=== PATIENT | female | born 1940 | race Caucasian/White ===

== ENCOUNTER → 2016-05-06 | Outpatient (CLI) | payer MEDICARE ==
--- NOTE | 2016-05-06 09:59 | REPMRS ---
Patient History The patient states she had a clinical breast exam in 08/27 Patient is postmenopausal. Family history of prostate cancer in paternal uncle at age 50 or over and prostate cancer in maternal uncle at age 50 or over. Digital Woman Screen Mammo: May 06, 2016 - Exam #: [id number] Bilateral CC and MLO view(s) were taken. Technologist: Mana Ferrara, Technologist Prior study comparison: December 22, 2014, digital woman screen mammo performed at [facility] to Woman. May 05, 2013, digital woman screen mammo performed at [facility] to [facility]. March 11, 2012, digital woman screen mammo performed at [facility] to [facility]. FINDINGS: There are scattered fibroglandular densities. There has been no change in the appearance of the mammogram from the prior studies. There is a mild amount of scattered fibroglandular density which is fairly symmetric. There is no interval development of dominant mass, architectural distortion, or clustered microcalcification suggestive of malignancy. ASSESSMENT: BI-RADS/ACR category 1 mammogram. Negative. Recommendation Routine screening mammogram in 1 year (for women over age 40). This mammogram was interpreted with the aid of an FDA-approved computer-aided dectection system. Electronically Signed By: Parth Garza MD 05/06/16 0959
--- NOTE | 2016-05-06 15:03 | DEXA ---
AP SPINE L1 - L4 1.166 -0.1 2.4 LT FEMUR TOTAL 0.737 -2.2 0.2 RT FEMUR TOTAL 0.654 -2.8 -0.4 TOTAL BODY TOTAL OTHER DUAL FEMUR FRAX* ASSESSMENT Risk factors: History of fracture (adult). Secondary osteoporosis ( premature menopause). 10 year probability of fracture Major osteoporotic fracture 23.5 % Hip fracture 8.1 % COMMENTS: Normal bone densitometry of the spine. 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 Lumbar scoliosis and degenerative change The density of the spine has increased 7.9% since the initial exam on 1999. The spine density has decreased 0.7% since the most recent exam on 04/02/2013. The density of the left hip has decreased 7.1% since the initial exam on 1999. The density of the left hip has decreased 3.9% since the most recent exam on . The density of the right hip has decreased 11.9% since the initial exam on 03/20. The density of the right hip has decreased 7.5% since the most recent exam on . FOLLOW-UP: Recommendation for the next bone density exam: 2 years. LIZ
== END | disposition home or self-care (01) ==
LOC: M WHC 08:54
PROVIDERS: ATTEND Internal Medicine
DX: Z12.31 Encounter for screening mammogram for malignant neoplasm of breast (principal); M85.80 Other specified disorders of bone density and structure, unspecified site; M81.0 Age-related osteoporosis without current pathological fracture; Z78.0 Asymptomatic menopausal state
CPT/HCPCS: 77080; G0202

== ENCOUNTER → 2016-06-14 | Outpatient (REF) | payer MEDICARE ==
[2016-06-14 11:39] LABS: MEAN CORPUSCULAR HGB CONC 33.4 g/dl (32.0-36.5); MEAN CORPUSCULAR VOLUME 86.9 fl (80.0-96.0); RED CELL DISTRIBUTION WIDTH 13.1 % (11.5-14.5); WHITE BLOOD COUNT 3.4 K/mm3 (4.0-10.0)
[2016-06-14 12:17] LABS: ALBUMIN 3.7 GM/DL (3.2-5.2); ALBUMIN/GLOBULIN RATIO 0.69 (1.00-1.93); ALKALINE PHOSPHATASE 137 U/L (45-117); ALT/SGPT 26 U/L (12-78); ANION GAP 7 MEQ/L (8-16); AST/SGOT 19 U/L (15-37); BILIRUBIN,TOTAL 0.3 MG/DL (0.2-1.0); BLOOD UREA NITROGEN 14 MG/DL (7-18); CALCIUM LEVEL 8.8 MG/DL (8.8-10.2); CARBON DIOXIDE LEVEL 30 MEQ/L (21-32); CHLORIDE LEVEL 104 MEQ/L (98-107); CHOLESTEROL LEVEL 202 MG/DL (<200); CREATININE FOR GFR 0.82 MG/DL (0.55-1.02); GLOMERULAR FILTRATION RATE > 60.0 (>39); GLUCOSE, FASTING 88 MG/DL (83-110); SODIUM LEVEL 141 MEQ/L (136-145); TOTAL PROTEIN 9.1 GM/DL (6.4-8.2); TRIGLYCERIDES LEVEL 134 MG/DL (<150)
[2016-06-17 12:34] LABS: ALBUMIN 4.05 GM/DL (3.29-5.55); ALBUMIN % 44.5 % (55.8-66.1); GAMMA GLOBULIN % 33.7 % (11.1-18.8)
== END ==
LOC: M SFHCPLAZ 07:53
PROVIDERS: ATTEND Internal Medicine
DX: D89.0 Polyclonal hypergammaglobulinemia (principal); I10 Essential (primary) hypertension; E78.00 Pure hypercholesterolemia, unspecified

== ENCOUNTER → 2016-12-18 | Outpatient (REF) | payer MEDICARE ==
[2016-12-18 12:37] LABS: ALBUMIN 3.6 GM/DL (3.2-5.2); ALBUMIN/GLOBULIN RATIO 0.64 (1.00-1.93); ALKALINE PHOSPHATASE 118 U/L (45-117); ALT/SGPT 29 U/L (12-78); ANION GAP 6 MEQ/L (8-16); AST/SGOT 21 U/L (15-37); BILIRUBIN,TOTAL 0.4 MG/DL (0.2-1.0); BLOOD UREA NITROGEN 15 MG/DL (7-18); CALCIUM LEVEL 8.9 MG/DL (8.8-10.2); CARBON DIOXIDE LEVEL 31 MEQ/L (21-32); CHLORIDE LEVEL 104 MEQ/L (98-107); GLOMERULAR FILTRATION RATE > 60.0 (>39); GLUCOSE, FASTING 80 MG/DL (83-110); POTASSIUM SERUM 3.7 MEQ/L (3.5-5.1); SODIUM LEVEL 141 MEQ/L (136-145); TOTAL PROTEIN 9.2 GM/DL (6.4-8.2)
[2016-12-18 12:43] LABS: MEAN CORPUSCULAR HEMOGLOBIN 30.4 pg (27.0-33.0); MEAN CORPUSCULAR HGB CONC 34.7 g/dl (32.0-36.5); MEAN CORPUSCULAR VOLUME 87.6 fl (80.0-96.0); RED CELL DISTRIBUTION WIDTH 13.5 % (11.5-14.5); WHITE BLOOD COUNT 2.8 K/mm3 (4.0-10.0)
[2016-12-19 14:26] LABS: ALBUMIN % 44.6 % (55.8-66.1); GAMMA GLOBULIN % 32.6 % (11.1-18.8)
== END ==
LOC: M SFHCPLAZ 09:52
PROVIDERS: ATTEND Internal Medicine
DX: D89.0 Polyclonal hypergammaglobulinemia (principal)

== ENCOUNTER → 2017-06-17 | Outpatient (REF) | payer MEDICARE ==
[2017-06-17 11:10] LABS: HEMATOCRIT 37.2 % (36.0-47.0); HEMOGLOBIN 12.2 g/dl (12.0-16.0); MEAN CORPUSCULAR HEMOGLOBIN 28.8 pg (27.0-33.0); MEAN CORPUSCULAR HGB CONC 32.8 g/dl (32.0-36.5); MEAN CORPUSCULAR VOLUME 87.9 fl (80.0-96.0); PLATELET COUNT, AUTOMATED 176 10^3/uL (150-450); RED BLOOD COUNT 4.23 10^6/uL (4.00-5.40); RED CELL DISTRIBUTION WIDTH 12.7 % (11.5-14.5); WHITE BLOOD COUNT 4.5 10^3/uL (4.0-10.0)
[2017-06-17 11:22] LABS: ALBUMIN 3.6 GM/DL (3.2-5.2); ALBUMIN/GLOBULIN RATIO 0.69 (1.00-1.93); ALKALINE PHOSPHATASE 111 U/L (45-117); ALT/SGPT 27 U/L (12-78); ANION GAP 7 MEQ/L (8-16); AST/SGOT 20 U/L (7-37); BILIRUBIN,TOTAL 0.4 MG/DL (0.2-1.0); BLOOD UREA NITROGEN 19 MG/DL (7-18); CALCIUM LEVEL 8.6 MG/DL (8.8-10.2); CARBON DIOXIDE LEVEL 29 MEQ/L (21-32); CHLORIDE LEVEL 106 MEQ/L (98-107); CHOLESTEROL LEVEL 209 MG/DL (<200); CHOLESTEROL RISK RATIO 3.666 (<5); CREATININE FOR GFR 0.76 MG/DL (0.55-1.30); GLOMERULAR FILTRATION RATE > 60.0 (>39); GLUCOSE, FASTING 81 MG/DL (70-100); HDL CHOLESTEROL 57 MG/DL (>40); LDL CHOLESTEROL 132.2 MG/DL (<100); NON-HDL-C 152 MG/DL; SODIUM LEVEL 142 MEQ/L (136-145); TOTAL PROTEIN 8.8 GM/DL (6.4-8.2); TRIGLYCERIDES LEVEL 99 MG/DL (<150)
[2017-06-17 13:35] LABS: ALBUMIN 4.05 GM/DL (3.29-5.55); ALPHA-1-GLOBULINS 0.33 GM/DL (0.17-0.41)
[2017-06-17 13:36] LABS: ALPHA-1-GLOBULIN % 3.8 % (2.9-4.9); ALPHA-2-GLOBULINS 0.78 GM/DL (0.42-0.99); ALPHA-2-GLOBULINS % 8.9 % (7.1-11.8); BETA-1-GLOBULINS % 5.7 % (4.7-7.2); BETA-2-GLOBULINS 0.37 GM/DL (0.19-0.55); BETA-2-GLOBULINS % 4.2 % (3.2-6.5); GAMMA GLOBULIN % 31.4 % (11.1-18.8); GAMMA GLOBULINS 2.76 GM/DL (0.65-1.58)
[2017-06-19 08:11] LABS: BETA 2 MICROGLOBULIN 2.4 mg/L (0.6-2.4)
== END ==
LOC: M SFHCPLAZ 08:11
DX: D89.0 Polyclonal hypergammaglobulinemia (principal); E78.00 Pure hypercholesterolemia, unspecified
CPT/HCPCS: 84165

== ENCOUNTER → 2017-12-31 | Outpatient (CLI) | payer MEDICARE | LOC: M WHC 09:28 | DX: Z12.31 Encounter for screening mammogram for malignant neoplasm of breast (principal) | CPT/HCPCS: 77067 ==

== ENCOUNTER → 2018-02-04 | Outpatient (REF) | payer MEDICARE ==
[2018-02-04 11:39] LABS: HEMOGLOBIN 12.1 g/dl (12.0-15.5); MEAN CORPUSCULAR HEMOGLOBIN 29.4 pg (27.0-33.0); MEAN CORPUSCULAR HGB CONC 32.7 g/dl (32.0-36.5); PLATELET COUNT, AUTOMATED 201 10^3/uL (150-450); RED BLOOD COUNT 4.11 10^6/uL (4.00-5.40); RED CELL DISTRIBUTION WIDTH 13.2 % (11.5-14.5); WHITE BLOOD COUNT 3.3 10^3/uL (4.0-10.0)
[2018-02-04 12:07] LABS: ALBUMIN 3.4 GM/DL (3.2-5.2); ALBUMIN/GLOBULIN RATIO 0.65 (1.00-1.93); ALKALINE PHOSPHATASE 96 U/L (45-117); ALT/SGPT 26 U/L (12-78); ANION GAP 5 MEQ/L (8-16); AST/SGOT 23 U/L (7-37); BILIRUBIN,TOTAL 0.3 MG/DL (0.2-1.0); BLOOD UREA NITROGEN 24 MG/DL (7-18); CALCIUM LEVEL 8.3 MG/DL (8.8-10.2); CARBON DIOXIDE LEVEL 31 MEQ/L (21-32); CHLORIDE LEVEL 104 MEQ/L (98-107); CHOLESTEROL LEVEL 208 MG/DL (<200); CHOLESTEROL RISK RATIO 3.586 (<5); CREATININE FOR GFR 0.78 MG/DL (0.55-1.30); GLOMERULAR FILTRATION RATE > 60.0 (>39); GLUCOSE, FASTING 79 MG/DL (70-100); HDL CHOLESTEROL 58 MG/DL (>40); LDL CHOLESTEROL 136 MG/DL (<100); NON-HDL-C 150 MG/DL; POTASSIUM SERUM 3.7 MEQ/L (3.5-5.1); SODIUM LEVEL 140 MEQ/L (136-145); TOTAL 25(OH) VITAMIN D 42.7 NG/ML (30.0-100.0); TOTAL PROTEIN 8.6 GM/DL (6.4-8.2); TRIGLYCERIDES LEVEL 71 MG/DL (<150)
== END ==
LOC: M SFHCPLAZ 07:57
DX: D89.0 Polyclonal hypergammaglobulinemia (principal); E78.00 Pure hypercholesterolemia, unspecified; M81.0 Age-related osteoporosis without current pathological fracture
CPT/HCPCS: 80053

== ENCOUNTER → 2018-08-12 | Outpatient (REF) | payer MEDICARE ==
[2018-08-12 10:47] LABS: HEMATOCRIT 37.4 % (36.0-47.0); HEMOGLOBIN 12.3 g/dl (12.0-15.5); MEAN CORPUSCULAR HEMOGLOBIN 28.7 pg (27.0-33.0); MEAN CORPUSCULAR HGB CONC 32.9 g/dl (32.0-36.5); MEAN CORPUSCULAR VOLUME 87.2 fl (80.0-96.0); PLATELET COUNT, AUTOMATED 195 10^3/uL (150-450); RED BLOOD COUNT 4.29 10^6/uL (4.00-5.40); WHITE BLOOD COUNT 4.9 10^3/uL (4.0-10.0)
[2018-08-12 11:24] LABS: ALBUMIN 3.4 GM/DL (3.2-5.2); ALT/SGPT 31 U/L (12-78); BILIRUBIN,TOTAL 0.4 MG/DL (0.2-1.0); BLOOD UREA NITROGEN 23 MG/DL (7-18); CALCIUM LEVEL 8.2 MG/DL (8.8-10.2); CARBON DIOXIDE LEVEL 31 MEQ/L (21-32); CHLORIDE LEVEL 105 MEQ/L (98-107); CHOLESTEROL LEVEL 221 MG/DL (<200); CHOLESTEROL RISK RATIO 3.683 (<5); CREATININE FOR GFR 0.83 MG/DL (0.55-1.30); GLOMERULAR FILTRATION RATE > 60.0 (>39); GLUCOSE, FASTING 86 MG/DL (70-100); HDL CHOLESTEROL 60 MG/DL (>40); LDL CHOLESTEROL 143 MG/DL (<100); NON-HDL-C 161 MG/DL; POTASSIUM SERUM 3.7 MEQ/L (3.5-5.1); SODIUM LEVEL 140 MEQ/L (136-145); TRIGLYCERIDES LEVEL 92 MG/DL (<150)
[2018-08-13 13:40] LABS: ALBUMIN 4.11 GM/DL (3.29-5.55); ALBUMIN % 45.7 % (55.8-66.1); ALPHA-1-GLOBULIN % 3.6 % (2.9-4.9); ALPHA-1-GLOBULINS 0.32 GM/DL (0.17-0.41); ALPHA-2-GLOBULINS % 8.9 % (7.1-11.8); BETA-1-GLOBULINS % 5.8 % (4.7-7.2); BETA-2-GLOBULINS % 4.2 % (3.2-6.5); GAMMA GLOBULIN % 31.8 % (11.1-18.8)
[2018-08-13 13:41] LABS: BETA-1-GLOBULINS 0.52 GM/DL (0.28-0.60); BETA-2-GLOBULINS 0.38 GM/DL (0.19-0.55); GAMMA GLOBULINS 2.86 GM/DL (0.65-1.58)
[2018-08-15 00:06] LABS: BETA 2 MICROGLOBULIN 2.7 mg/L (0.6-2.4); FREE KAPPA LIGHT CHAINS SERUM 53.8 mg/L (3.3-19.4); FREE LAMBDA LIGHT CHAINS SERUM 22.6 mg/L (5.7-26.3); KAPPA/LAMBDA RATIO SERUM 2.38 (0.26-1.65)
== END ==
LOC: M SFHCPLAZ 08:14
PROVIDERS: ATTEND Internal Medicine
DX: D89.0 Polyclonal hypergammaglobulinemia (principal); I10 Essential (primary) hypertension; E78.00 Pure hypercholesterolemia, unspecified

== ENCOUNTER → 2019-02-17 | Outpatient (REF) | payer MEDICARE ==
[2019-02-17 10:45] LABS: ALBUMIN 3.3 GM/DL (3.2-5.2); ALT/SGPT 29 U/L (12-78); BILIRUBIN,TOTAL 0.3 MG/DL (0.2-1.0); BLOOD UREA NITROGEN 19 MG/DL (7-18); CALCIUM LEVEL 8.6 MG/DL (8.8-10.2); CARBON DIOXIDE LEVEL 31 MEQ/L (21-32); CHLORIDE LEVEL 103 MEQ/L (98-107); CHOLESTEROL LEVEL 207 MG/DL (<200); CHOLESTEROL RISK RATIO 3.285 (<5); CREATININE FOR GFR 0.81 MG/DL (0.55-1.30); GLOMERULAR FILTRATION RATE > 60.0 (>39); GLUCOSE, FASTING 84 MG/DL (70-100); HDL CHOLESTEROL 63 MG/DL (>40); LDL CHOLESTEROL 126 MG/DL (<100); MAGNESIUM LEVEL 1.9 MG/DL (1.8-2.4); NON-HDL-C 144 MG/DL; POTASSIUM SERUM 3.8 MEQ/L (3.5-5.1); SODIUM LEVEL 139 MEQ/L (136-145); TOTAL PROTEIN 8.5 GM/DL (6.4-8.2); TRIGLYCERIDES LEVEL 92 MG/DL (<150)
[2019-02-18 09:39] LABS: ALBUMIN 3.88 GM/DL (3.29-5.55)
[2019-02-18 09:40] LABS: ALBUMIN % 45.7 % (55.8-66.1); ALPHA-1-GLOBULIN % 4.5 % (2.9-4.9); ALPHA-1-GLOBULINS 0.38 GM/DL (0.17-0.41); ALPHA-2-GLOBULINS 0.85 GM/DL (0.42-0.99); BETA-1-GLOBULINS 0.48 GM/DL (0.28-0.60); BETA-1-GLOBULINS % 5.7 % (4.7-7.2); BETA-2-GLOBULINS 0.41 GM/DL (0.19-0.55); BETA-2-GLOBULINS % 4.8 % (3.2-6.5); GAMMA GLOBULIN % 29.3 % (11.1-18.8); GAMMA GLOBULINS 2.49 GM/DL (0.65-1.58)
[2019-02-19 08:10] LABS: BETA 2 MICROGLOBULIN 2.8 mg/L (0.6-2.4); FREE KAPPA LIGHT CHAINS SERUM 48.6 mg/L (3.3-19.4); FREE LAMBDA LIGHT CHAINS SERUM 26.9 mg/L (5.7-26.3); KAPPA/LAMBDA RATIO SERUM 1.81 (0.26-1.65)
== END ==
LOC: M SFHCPLAZ 07:58
PROVIDERS: ATTEND Internal Medicine
DX: D89.0 Polyclonal hypergammaglobulinemia (principal); I10 Essential (primary) hypertension; E78.00 Pure hypercholesterolemia, unspecified

== ENCOUNTER 2019-06-20 16:54 | Inpatient (IN) | payer MEDICARE ==
[2019-06-20] VITALS (10 sets, daily range): BP systolic 110–157; BP diastolic 57–74
[~2019-06-20] VITALS: Ht 152.4 cm; Wt 97.9 kg
[2019-06-20] MEDS ORDERED: OYST1TAB PO (17:02)
[2019-06-20] MEDS ORDERED: AMLO10TA5 PO (17:02)
[2019-06-20] MEDS ORDERED: ASPI-1 PO (17:02)
[2019-06-20] MEDS ORDERED: IBAN150T6 PO (17:02)
[2019-06-20] MEDS ORDERED: FISH1000 PO (17:02)
[2019-06-20 17:45] LABS: BASO % 0.2 % (0.0-1.0); EOS % 0.2 % (0.0-3.0); LYMPH % 16.9 % (24.0-44.0); MEAN CORPUSCULAR HEMOGLOBIN 29.2 pg (27.0-33.0); MEAN CORPUSCULAR HGB CONC 32.7 g/dl (32.0-36.5); MEAN CORPUSCULAR VOLUME 89.3 fl (80.0-96.0); MONO # 0.3 10^3/uL (0.0-0.8); MONO % 5.6 % (0.0-5.0); NEUTROPHILS # 4.7 10^3/uL (1.5-8.5); NEUTROPHILS % 76.8 % (36.0-66.0); PLATELET COUNT, AUTOMATED 184 10^3/uL (150-450); RED BLOOD COUNT 2.33 10^6/uL (4.00-5.40); WHITE BLOOD COUNT 6.1 10^3/uL (4.0-10.0)
[2019-06-20] MEDS ORDERED: PANTOPRAZOLE 40MG INJ (PROTONIX) (C9113) IV ONE (17:45)
[2019-06-20 17:57] LABS: HEMATOCRIT 20.8 % (36.0-47.0); HEMOGLOBIN 6.8 g/dl (12.0-15.5)
[2019-06-20 17:58] LABS: ALBUMIN 2.6 GM/DL (3.2-5.2); ALT/SGPT 20 U/L (12-78); BILIRUBIN,DIRECT < 0.1 MG/DL (0.0-0.2); BILIRUBIN,TOTAL 0.2 MG/DL (0.2-1.0); CK-MB VALUE MASS 1.4 NG/ML (<3.6); CPK CREATINE PHOSPHOKINASE 81 U/L (26-192); INR 1.05; LIPASE 209 U/L (73-393); MB/CK RELATIVE INDEX 1.73 (< OR =4); PROTHROMBIN TIME 13.5 SECONDS (11.8-14.0); TOTAL PROTEIN 6.7 GM/DL (6.4-8.2); TROPONIN I < 0.02 NG/ML (< 0.10)
--- NOTE | 2019-06-20 18:35 | ECGEPIP ---
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
[2019-06-20] MEDS ORDERED: ACETAMINOPHEN TAB 650MG DOSE (2X325MG) PO PRN (19:15)
--- NOTE | 2019-06-20 19:18 | HPEPDOC ---
[facility] Medical History & Physical Date of Admission Jun 20, 2019 Date of Service: Jun 20, 2019 Primary Care Physician: Loyd Ludwig Attending Physician: STEPHANIE CANSECO MD History and Physical TIME OF SERVICE: 8:05 PM CHIEF COMPLAINT: Black stools HISTORY OF PRESENT ILLNESS: This is an 79-year-old female who presents with complaints of black stools for 2-3 days associated with "feeling lightheaded and woozy". She denies having similar symptoms in the past, denies having abdominal pain, fever, chills, chest pain, shortness of breath, falling, or losing consciousness. REVIEW OF SYSTEMS: 12 point review of systems negative except as listed in HPI PAST MEDICAL/ SURGICAL HISTORY: Chronic HTN Sjogren's Polyclonal gammopathy, Dyslipidemia Osteoporosis SOCIAL HISTORY: She doesn't smoke FAMILY HISTORY: CHF CAD HTN ALLERGIES: Please see below. HOME MEDICATIONS: Please see below. Vital Signs Date Time Temp Pulse Resp B/P (MAP) Pulse Ox O2 Delivery O2 Flow Rate FiO2 06/20/19 16:54 97.5 93 18 146/65 (92) 99 Room Air PHYSICAL EXAMINATION: GEN: well-nourished / well developed/ NAD INTEGUMENT: not flushed HEENT: NCAT / mucus membranes moist and pink CVS: RRR/NMRG/ radial pulses intact / no lower extremity edema LUNGS: / lungs are clear to auscultation bilaterally on room air ABDOMEN: Contour (flat) / soft & not tender with palpation NEURO: CN 2-12 are grossly intact / speech is not dysarthric PSYCH: alert and oriented to person place and time/ able to understand and follow all commands LABORATORY DATA: Prothrombin Time 13.5, Prothromb Time International Ratio 1.05, Total Bilirubin 0.2, Direct Bilirubin < 0.1, Aspartate Amino Transf (AST/SGOT) 20, Alanine Aminotransferase (ALT/SGPT) 20, Alkaline Phosphatase 76, Total Creatine Kinase 81, Creatine Kinase MB 1.4, Creatine Kinase MB Relative Index 1.73, Troponin I < 0.02, Total Protein 6.7, Albumin 2.6L, Albumin/Globulin Ratio 0.63L, Lipase 209 POC Glucose (Misc Panel) 146H, POC Sodium (Misc Panel) 139, POC Potassium (Misc Panel) 3.5, POC Chloride (Misc Panel) 104, POC Total CO2 (Misc Panel) 25.0, POC Blood Urea Nitrogen (Misc Panel 59H, POC Ionized Calcium (Misc Panel) 4.9, POC Creatinine (Misc Panel) 0.7, POC Hematocrit (Misc Panel) 21.0L ASSESSMENT: Ms. Smith is an 79-year-old with a past medical history of HTN, Sjogren's, polyclonal gammopathy, and osteoporosis who is admitted for evaluation of acute anemia secondary to melena. PLAN: 1. Acute anemia secondary to melena May be due to: diverticulosis, angiodysplasia's (most common cause of small- bowel bleeding in older patients), AVM, polyps, colorectal cancer, hemorrhoids Her hemoglobin is down to 6.8 from a baseline of around 12.1, 2 units of PRBCs have been ordered in the ER Plan: admit to PCU / check orthostatics / IV PPI twice a day / CLD w IVF pending GI consult / f/u stool occult, serial Hg and iron panel / hold aspirin 2. Chronic HTN - amlodipine DVT PROPHYLAXIS: SCDs DISPOSITION: Home. After more than 2 midnight stay Home Medications Scheduled Amlodipine Besylate (Amlodipine Besylate) 10 Mg Tablet, 10 MG PO DAILY Aspirin (Aspirin) 325 Mg Tablet, 325 MG PO DAILY Calcium Carbonate (Calcium) 500 Mg Tablet, 500 MG PO BID Ibandronate Sodium (Ibandronate Sodium) 150 Mg Tablet, 150 MG PO QMONTH [place]-3 Fatty Acids/Fish Oil (Fish Oil 1,000 mg Capsule) 1 Each Capsule, 2,000 MG PO DAILY Allergies Coded Allergies: Sulfa (Sulfonamide Antibiotics) (Verified Allergy, Unknown, 06/20/19) A-FIB/CHADSVASC A-FIB History Current/History of A-Fib/PAF?: No Current PO Anticoag Therapy: No STEPHANIE CANSECO MD Jun 20, 2019 19:18
[2019-06-20] MEDS: LR 1,000 ML IV SCH (23:31)
[2019-06-21 00:20] VITALS: BP 124/59
[2019-06-21 04:00] VITALS: BP 122/60
[2019-06-21 04:29] LABS: HEMATOCRIT 24.5 % (36.0-47.0); HEMOGLOBIN 8.2 g/dl (12.0-15.5); MEAN CORPUSCULAR HGB CONC 33.5 g/dl (32.0-36.5); MEAN CORPUSCULAR VOLUME 86.6 fl (80.0-96.0); PLATELET COUNT, AUTOMATED 122 10^3/uL (150-450); RED BLOOD COUNT 2.83 10^6/uL (4.00-5.40); WHITE BLOOD COUNT 4.2 10^3/uL (4.0-10.0)
[2019-06-21 04:55] LABS: ALBUMIN 2.2 GM/DL (3.2-5.2); ALT/SGPT 15 U/L (12-78); BILIRUBIN,TOTAL 0.3 MG/DL (0.2-1.0); BLOOD UREA NITROGEN 41 MG/DL (7-18); CALCIUM LEVEL 7.4 MG/DL (8.8-10.2); CARBON DIOXIDE LEVEL 26 MEQ/L (21-32); CHLORIDE LEVEL 114 MEQ/L (98-107); CREATININE FOR GFR 0.54 MG/DL (0.55-1.30); GLOMERULAR FILTRATION RATE > 60.0 (>32); GLUCOSE, FASTING 100 MG/DL (70-100); POTASSIUM SERUM 3.3 MEQ/L (3.5-5.1); SODIUM LEVEL 143 MEQ/L (136-145); TOTAL PROTEIN 5.7 GM/DL (6.4-8.2)
[2019-06-21 08:00] VITALS: BP_SYST 135; BP_SYST 145; BP_DIAS 63; BP_DIAS 65
[2019-06-21] MEDS ORDERED: PREVNAR 13 VACCINE SYRINGE (CPT CODE:90670) IM ONE (09:00)
[2019-06-21] MEDS: PANTOPRAZOLE 40MG INJ (PROTONIX) (C9113) IV SCH ×2 (09:06→20:52)
[2019-06-21] MEDS: amLODIPine 10 MG TAB PO SCH (09:06)
--- NOTE | 2019-06-21 11:39 | CR.PDOC ---
General Surgery Consultation Date of Consultation 06/21/19 History and Physical CONSULT REPORT FOR: Ovi Ervin (hospitalist service) REASON FOR CONSULTATION: GI bleeding HISTORY OF PRESENT ILLNESS: Patient is currently admitted to the hospital overnight for complaints of melanotic stool for the past 2-3 days, lightheadedness, weakness. She was found to be anemic with a hemoglobin of 6.8. She was subsequently admitted and given 2 units of packed RBCs. Last bowel movement was early this morning which was small in amount but still melanotic in color. She denies any associated abdominal discomfort, bloating. She takes to 25 mg aspirin daily for her arthritis. She is not on any cytoprotective medications for her stomach. She denies any prior history of PUD, gastric ulcers. She denies any unexplained weight loss. She is not a smoker. In being asked to consider performing an upper and lower endoscopy for workup of her GI bleeding. Her last colonoscopy was on 2011. PAST MEDICAL HISTORY: 1. Hypertension 2. Sjogren syndrome 3. Polyclonal gammopathy 4. Dyslipidemia 5. Osteoporosis. PAST SURGICAL HISTORY: INCLUDES: 1. Hysterectomy for endometriosis 2. Bilateral cataract surgery ALLERGIES: Please see below. FAMILY HISTORY: Denies family history for gastrointestinal malignancy. HOME MEDICATIONS: Please see below. REVIEW OF SYSTEMS: GENERAL: Patient denies any unexplained weight loss. HEENT: Has prior bilateral cataract surgery. Denies any blurring of vision, problems with healing. NECK: Denies any neck pain CARDIOVASCULAR: Denies chest pain and palpitations. MUSCULOSKELETAL: Reports back pain, multiple joint pains. SKIN: Denies rash. NEUROLOGIC: Denies headache, stroke and transient ischemic attack. PSYCHIATRIC: Denies anxiety and depression. HEMATOLOGY/ONCOLOGY: Denies bleeding or clotting disorder. PULMONARY: Denies chronic cough, dyspnea and wheezing. GASTROINTESTINAL: See HPI.. GENITOURINARY: Denies dysuria, frequency, hematuria and nocturia. ENDOCRINE: Denies polydipsia, polyphagia, polyuria, heat or cold intolerance. INFECTIOUS: Denies any recent upper respiratory tract infection, UTI, need for use of antibiotics. NUTRITION: Reports good appetite. PHYSICAL EXAMINATION: VITALS SIGNS: Please see below. GENERAL APPEARANCE: Patient seen in the room, looks very comfortable, moves around without difficulty. She is pleasant and cooperative. SKIN: Warm and moist. HEENT: Normocephalic, atraumatic. Mildly pale palpebral conjunctiva, anicteric sclerae. Lips and mucosa appear moist. NECK: Supple, no thyromegaly. No obvious jugular venous distention. LUNGS: Clear to auscultation bilaterally. No wheezing appreciated. HEART: No chest wall abnormalities. Regular rate and rhythm with no murmurs appreciated. ABDOMEN: Abdomen is flat, soft, and nondistended. Nontender on palpation Rectal exam: Deferred until colonoscopy. EXTREMITIES: Extremities have no deformities. No edema identified ANCILLARIES: . LABORATORY DATA: Please see below. Initial hemoglobin of 6.8 on admission. She received 2 units packed RBCs. And this came up to 8.4 following transfusion. IMAGING STUDIES: . IMPRESSION AND PLAN: Posthemorrhagic anemia Gastrointestinal bleeding most likely sources upper or proximal to the ligament of Treitz given melanotic presentation. Her main risk factor is daily use of 325 mg of aspirin for her arthritis. She's not had any cytoprotective therapy. She currently is on twice a day Protonix IV. We will continue this for now pending further evaluation. She'll be scheduled for upper endoscopy and colonoscopy tomorrow. Her last colonoscopy was in 2011 just showing diverticulosis. She will undergo bowel prep tonight or early tomorrow morning. I discussed with the patient the details of the proposed procedure, the benefits of performing the procedure, the most common risks on doing the procedure. This may include risks of aspiration, bleeding or rebleeding or even failure to find the source of bleeding, perforation. I have given her a chance to ask questions, voice out concerns. Patient has agreed to proceed Vital Signs Vital Signs Date Time Temp Pulse Resp B/P (MAP) Pulse Ox O2 Delivery O2 Flow Rate FiO2 06/21/19 09:06 90 145/65 06/21/19 08:00 97.5 20 98 Room Air I&Os I&O- Last 24 Hours up to 6 AM 06/21/19 05:59 Intake Total 1265 ml Output Total 1000 ml Balance 265 ml Laboratory Data Labs 24H Laboratory Tests 2 06/20/19 17:22: Immature Granulocyte % (Auto) 0.3, Neutrophils (%) (Auto) 76.8H, Lymphocytes (%) (Auto) 16.9L, Monocytes (%) (Auto) 5.6H, Eosinophils (%) (Auto) 0.2, Basophils (%) (Auto) 0.2, Neutrophils # (Auto) 4.7, Lymphocytes # (Auto) 1.0L, Monocytes # (Auto) 0.3, Eosinophils # (Auto) 0.0, Basophils # (Auto) 0.0, Nucleated Red Blood Cells % (auto) 0.0, Prothrombin Time 13.5, Prothromb Time International Ratio 1.05, Total Bilirubin 0.2, Direct Bilirubin < 0.1, Aspartate Amino Transf (AST/SGOT) 20, Alanine Aminotransferase (ALT/SGPT) 20, Alkaline Phosphatase 76, Total Creatine Kinase 81, Creatine Kinase MB 1.4, Creatine Kinase MB Relative Index 1.73, Troponin I < 0.02, Total Protein 6.7, Albumin 2.6L, Albumin/Globulin Ratio 0.63L, Lipase 209 06/20/19 17:26: POC Glucose (Misc Panel) 146H, POC Sodium (Misc Panel) 139, POC Potassium (Misc Panel) 3.5, POC Chloride (Misc Panel) 104, POC Total CO2 (Misc Panel) 25.0, POC Blood Urea Nitrogen (Misc Panel 59H, POC Ionized Calcium (Misc Panel) 4.9, POC Creatinine (Misc Panel) 0.7, POC Hematocrit (Misc Panel) 21.0L 06/21/19 04:18: Nucleated Red Blood Cells % (auto) 0.0, Total Bilirubin 0.3, Aspartate Amino Transf (AST/SGOT) 16, Alanine Aminotransferase (ALT/SGPT) 15, Alkaline Phosp hatase 62, Total Protein 5.7L, Albumin 2.2L, Albumin/Globulin Ratio 0.63L, Anion Gap 3L, Glomerular Filtration Rate > 60.0, Calcium Level 7.4L, Magnesium Level 2.0 CBC/BMP Laboratory Tests 06/20/19 17:22 06/21/19 04:18 Home Medications Scheduled Amlodipine Besylate (Amlodipine Besylate) 10 Mg Tablet, 10 MG PO DAILY, (Reported) Aspirin (Aspirin) 325 Mg Tablet, 325 MG PO DAILY, (Reported) Calcium Carbonate (Calcium) 500 Mg Tablet, 500 MG PO BID, (Reported) Ibandronate Sodium (Ibandronate Sodium) 150 Mg Tablet, 150 MG PO QMONTH, (Repor amanda) [place]-3 Fatty Acids/Fish Oil (Fish Oil 1,000 mg Capsule) 1 Each Capsule, 2,000 MG PO DAILY, (Reported) Allergies Coded Allergies: Sulfa (Sulfonamide Antibiotics) (Verified Allergy, Unknown, 06/20/19) VENKATESH ORTEGA MD Jun 21, 2019 11:39
--- NOTE | 2019-06-21 11:50 | IPN ---
DATE: 06/21/2019 Sosa was seen on PCU, admitted by the hospitalist service with melena. She is a patient of Dr. Loyd Ludwig, admitted tot he hospitalist service. I reviewed her office records. She has a history of polyclonal gammopathy, hypertensive heart disease, age appropriate osteoporosis, hyperlipidemia, and some kind of CCA syndrome. Surgically, she has had dilatation and curettage and laparoscopy in the remote . FREDO/BSO with incidental appendectomy in 1976. Colonoscopy [address] Willoughby. Cataract extraction right eye 2003, left eye 2014. FAMILY HISTORY: Father of hypertension, diabetes, cerebral hemorrhage. Mother had hypertension and coronary disease. HOME MEDICATIONS: - fish oil - multivitamin - aspirin 325 mg daily - ibandronate 150 mg monthly - Norvasc 10 mg daily REVIEW OF SYSTEMS: She denies any abdominal pain, dysphagia, unexplained weight loss, chest pain, or shortness of breath (SOB). PHYSICAL EXAMINATION: 145/65, pulse is 90, respiratory rate 18, 98% oxygen saturation. General appearance: Elderly, resting comfortably. 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 She recognized me immediately and pointed out that I had not change since the last time she saw me.) No jugular venous distention (JVD). Lungs clear. Heart regular rhythm, 1/6 systolic ejection murmur. Abdomen soft, nontender, no masses. No peripheral edema. LABORATORIES: White count 4.2, hemoglobin 8.2 after transfusion (6.8 on admission), platelets 122, sodium 143, potassium 3.3, BUN 41, creatinine 0.5, glucose 100. PT/PTT normal. IMPRESSION: 1. GI bleed, probably upper GI bleed. She is passing melena and has a significantly elevated BUN/creatinine ratio. She is on IV Protonix. Case was discussed with Dr. Lares. He will see the patient in consultation. (Admission indicates that gastroenterology was consulted. I called Dr. Campbell. He had not heard about the consult nor was he aware of it, and apparent is no longer has a consultative service). Serial CBCs have been ordered. Continue IV fluids. 2. Hypokalemia. I changed her IV fluids and I gave her some potassium runs. 3. Hypertension. Continue her amlodipine. We will hold this if she drops her pressure at all. Anticipate that she will have her upper endoscopy tomorrow.
[2019-06-21 12:00] VITALS: BP 134/65
[2019-06-21 12:30] LABS: HEMATOCRIT 24.5 % (36.0-47.0); HEMOGLOBIN 8.4 g/dl (12.0-15.5); MEAN CORPUSCULAR HEMOGLOBIN 29.6 pg (27.0-33.0); MEAN CORPUSCULAR HGB CONC 34.3 g/dl (32.0-36.5); MEAN CORPUSCULAR VOLUME 86.3 fl (80.0-96.0); PLATELET COUNT, AUTOMATED 144 10^3/uL (150-450); RED BLOOD COUNT 2.84 10^6/uL (4.00-5.40); WHITE BLOOD COUNT 4.1 10^3/uL (4.0-10.0)
[2019-06-21] MEDS: LR 1,000 ML IV SCH (12:51)
[2019-06-21] MEDS: KCL 10MEQ/100ML SWI (KRUN) 10 MEQ in IV 1 EA IV SCH ×4 (12:51→16:22)
[2019-06-21 16:00] VITALS: BP 145/67
[2019-06-21] MEDS ORDERED: BISACODYL 5 MG TAB PO ONE (17:00)
[2019-06-21] MEDS ORDERED: GOLYTELY SOLN 4000 ML BTL PO ONE (18:00)
[2019-06-21 18:09] LABS: HEMATOCRIT 27.9 % (36.0-47.0); HEMOGLOBIN 9.2 g/dl (12.0-15.5); MEAN CORPUSCULAR HEMOGLOBIN 29.2 pg (27.0-33.0); MEAN CORPUSCULAR VOLUME 88.6 fl (80.0-96.0); PLATELET COUNT, AUTOMATED 196 10^3/uL (150-450); RED BLOOD COUNT 3.15 10^6/uL (4.00-5.40); WHITE BLOOD COUNT 5.6 10^3/uL (4.0-10.0)
[2019-06-21 20:00] VITALS: BP 103/52
[2019-06-22] VITALS: BP 122/62
[2019-06-22 00:19] LABS: HEMATOCRIT 26.1 % (36.0-47.0); HEMOGLOBIN 8.7 g/dl (12.0-15.5); MEAN CORPUSCULAR HEMOGLOBIN 29.5 pg (27.0-33.0); MEAN CORPUSCULAR HGB CONC 33.3 g/dl (32.0-36.5); MEAN CORPUSCULAR VOLUME 88.5 fl (80.0-96.0); PLATELET COUNT, AUTOMATED 159 10^3/uL (150-450); RED BLOOD COUNT 2.95 10^6/uL (4.00-5.40); WHITE BLOOD COUNT 7.1 10^3/uL (4.0-10.0)
[2019-06-22 04:00] VITALS: BP 131/65
[2019-06-22] MEDS ORDERED: GOLYTELY SOLN 4000 ML BTL PO ONE (05:00)
[2019-06-22 05:15] LABS: HEMATOCRIT 23.5 % (36.0-47.0); HEMOGLOBIN 7.8 g/dl (12.0-15.5); MEAN CORPUSCULAR HEMOGLOBIN 29.1 pg (27.0-33.0); MEAN CORPUSCULAR HGB CONC 33.2 g/dl (32.0-36.5); MEAN CORPUSCULAR VOLUME 87.7 fl (80.0-96.0); PLATELET COUNT, AUTOMATED 134 10^3/uL (150-450); RED BLOOD COUNT 2.68 10^6/uL (4.00-5.40); WHITE BLOOD COUNT 4.2 10^3/uL (4.0-10.0)
[2019-06-22 05:40] LABS: BLOOD UREA NITROGEN 16 MG/DL (7-18); CALCIUM LEVEL 7.3 MG/DL (8.8-10.2); CARBON DIOXIDE LEVEL 28 MEQ/L (21-32); CHLORIDE LEVEL 113 MEQ/L (98-107); CREATININE FOR GFR 0.54 MG/DL (0.55-1.30); GLOMERULAR FILTRATION RATE > 60.0 (>32); GLUCOSE, FASTING 83 MG/DL (70-100); POTASSIUM SERUM 3.2 MEQ/L (3.5-5.1); SODIUM LEVEL 144 MEQ/L (136-145)
[2019-06-22 08:00] VITALS: BP 131/61
[2019-06-22] MEDS: PANTOPRAZOLE 40MG INJ (PROTONIX) (C9113) IV SCH (10:24)
[2019-06-22] MEDS: amLODIPine 10 MG TAB PO SCH (10:24)
[2019-06-22] MEDS: LR 1,000 ML IV SCH (10:24)
[2019-06-22 12:00] VITALS: BP 117/67
--- NOTE | 2019-06-22 14:30 | IPNPDOC ---
Text Note Date of Service The patient was seen on 06/22/19. NOTE Subjective: Patient is an 79 year old female with a PMHx of Chronic HTN, Dyslipidemia, Sjogren's, Polyclonal gammopathy, Osteoporosis who presented to [facility] ER with complaints of black stools for 2-3 days associated with light- headedness. Patient was admitted to the hospital service for further evaluation and treatment. Patient was seen and examined at the bedside. Patient denies any chest pain, shortness breath or palpitations. Has not expense any nausea, vomiting. Denies any significant abdominal pain. Patient has completed her bowel prep with Go LYTELY and is scheduled for colonoscopy and EGD later today. Objective: Vitals (See below) General: Lying in bed, no acute distress, comfortable, AAOx3 HEENT: NC, AT CVS: RRR, +S1S2 Lungs: Fair air entry b/l, -w/r/r Abdomen: Soft, ND, NT Extremities: - Edema, - Calf tenderness Assessment and plan: Acute blood loss anemia - likely 2/2 GI bleed - possibly 2/2 upper GI bleed - Upon arrival, patient had presented with dark colored stool - Lab work had revealed anemia - s/p 2 units PRBC - Hg relatively stable; current drop possibly 2/2 dilutional etiology as bowel movements did not have any evidence of blood - c/w Protonix - Dr. Lares on consultation; appreciate his input Hypokalemia - s/p supplementation Hypertension - BP well controlled - c/w Amlodipine DVT prophylaxis - c/w TEDs / Sequentials Disposition: - Anticipate DC within next 24-48 hours VS,Sommer, I+O VS, Sommer, I+O Laboratory Tests 06/21/19 17:57 06/21/19 23:43 06/22/19 04:56 Vital Signs Date Time Temp Pulse Resp B/P (MAP) Pulse Ox O2 Delivery O2 Flow Rate FiO2 06/22/19 12:00 97.1 69 16 117/67 (84) 100 Room Air I&O- Last 24 Hours up to 6 AM 06/22/19 06:00 Intake Total 1120 ml Output Total 1900 ml Balance -780 ml SUSY DAWSON MD Jun 22, 2019 14:30
[2019-06-22 16:00] VITALS: BP 135/60
[2019-06-22] MEDS ORDERED: propofoL 200 MG/20 ML VIAL As Ordered ONE (17:05)
[2019-06-22] MEDS ORDERED: LIDOCAINE 2% INJ 100 MG/5 ML SDV (FOR ANES.) As Ordered ONE (17:05)
[2019-06-22] MEDS ORDERED: fentaNYL 100 MCG/2 ML INJECTION (J3010) As Ordered ONE (17:05)
[2019-06-22] MEDS ORDERED: PHENYLephrine HCL 500 MCG/5 ML (100MCG/ML) SYRINGE (J2370) As Ordered ONE (17:48)
[2019-06-22] MEDS ORDERED: ePHEDrine SULFATE 25 MG/5 ML(5MG/ML) SYRINGE As Ordered ONE (17:48)
--- NOTE | 2019-06-22 18:34 | ROOR ---
Patient Name: Sosa Smith Procedure Date: 06/22/2019 5:05 PM Date of : 1940 Age: 79 Gender: Female Note Status: Finalized Procedure: Colonoscopy Indications: Melena Providers: Maximilian Lares MD Referring MD: Ovi Ervin MD Requesting Provider: Medicines: Monitored Anesthesia Care Complications: No immediate complications. Procedure: Pre-Anesthesia Assessment: - Prior to the procedure, a History and Physical was performed, and patient medications and allergies were reviewed. The patient is competent. The risks and benefits of the procedure and the sedation options and risks were discussed with the patient. All questions were answered and informed consent was obtained. Patient identification and proposed procedure were verified by the physician, the nurse and the slate handler in the procedure room. Mental Status Examination: alert and oriented. Airway Examination: normal oropharyngeal airway and neck mobility. Respiratory Examination: clear to auscultation. CV Examination: normal. Prophylactic Antibiotics: The patient does not require prophylactic antibiotics. Prior Anticoagulants: The patient has taken aspirin, last dose was 4 days prior to procedure. ASA Grade Assessment: II - A patient with mild systemic disease. After reviewing the risks and benefits, the patient was deemed in satisfactory condition to undergo the procedure. The anesthesia plan was to use monitored anesthesia care (MAC). Immediately prior to administration of medications, the patient was re-assessed for adequacy to receive sedatives. The heart rate, respiratory rate, oxygen saturations, blood pressure, adequacy of pulmonary ventilation, and response to care were monitored throughout the procedure. The physical status of the patient was re-assessed after the procedure. The Colonoscope was introduced through the anus and advanced to the cecum, identified by appendiceal orifice and ileocecal valve. The colonoscopy was technically difficult and complex due to multiple diverticula in the colon and a tortuous colon. The patient tolerated the procedure well. The quality of the bowel preparation was good. Findings: The perianal and digital rectal examinations were normal. Multiple small and large-mouthed diverticula were found in the sigmoid colon, transverse colon, hepatic flexure, ascending colon and cecum. There was no evidence of diverticular bleeding. The exam was otherwise without abnormality. The entire examined colon appeared normal on direct and retroflexion views. Impression: - Moderate diverticulosis in the sigmoid colon, in the transverse colon, at the hepatic flexure, in the ascending colon and in the cecum. There was no evidence of diverticular bleeding. - The examination was otherwise normal. - The entire examined colon is normal on direct and retroflexion views. - No specimens collected. Recommendation: - Admit the patient to hospital [facility] for ongoing care. Maximilian Lares MD Maximilian Lares MD 06/22/2019 6:33:59 PM Electronically signed by Maximilian Lares MD Number of Addenda: 0 Note Initiated On: 06/22/2019 5:05 PM Estimated Blood Loss: Estimated blood loss: none.
[2019-06-22] MEDS ORDERED: ONDANSETRON 4MG/2ML VIAL (J2405) IV PRN (18:45)
[2019-06-22] MEDS ORDERED: LR 1,000 ML IV SCH (18:45)
[2019-06-22 19:13] LABS: HEMATOCRIT 24.5 % (36.0-47.0); HEMOGLOBIN 8.1 g/dl (12.0-15.5)
[2019-06-22 20:00] VITALS: BP 99/55
[2019-06-23] VITALS (14 sets, daily range): BP systolic 103–133; BP diastolic 53–72
[2019-06-23 00:17] LABS: HEMATOCRIT 22.4 % (36.0-47.0); HEMOGLOBIN 7.3 g/dl (12.0-15.5)
[2019-06-23 05:34] LABS: HEMATOCRIT 23.4 % (36.0-47.0); HEMOGLOBIN 7.7 g/dl (12.0-15.5); MEAN CORPUSCULAR HEMOGLOBIN 29.3 pg (27.0-33.0); MEAN CORPUSCULAR HGB CONC 32.9 g/dl (32.0-36.5); PLATELET COUNT, AUTOMATED 172 10^3/uL (150-450); RED BLOOD COUNT 2.63 10^6/uL (4.00-5.40); WHITE BLOOD COUNT 2.9 10^3/uL (4.0-10.0)
[2019-06-23 05:52] LABS: BLOOD UREA NITROGEN 12 MG/DL (7-18); CALCIUM LEVEL 7.1 MG/DL (8.8-10.2); CARBON DIOXIDE LEVEL 28 MEQ/L (21-32); CHLORIDE LEVEL 112 MEQ/L (98-107); CREATININE FOR GFR 0.57 MG/DL (0.55-1.30); GLOMERULAR FILTRATION RATE > 60.0 (>32); GLUCOSE, FASTING 84 MG/DL (70-100); SODIUM LEVEL 143 MEQ/L (136-145)
[2019-06-23] MEDS ORDERED: POTASSIUM CHLORIDE 10 MEQ SR TABLET PO ONE (08:00)
[2019-06-23] MEDS ORDERED: PANTOPRAZOLE 40MG TAB (PROTONIX) PO SCH (09:00)
[2019-06-23] MEDS: amLODIPine 10 MG TAB PO SCH (09:25)
[2019-06-23] MEDS ORDERED: PREVNAR 13 VACCINE SYRINGE (CPT CODE:90670) IM ONE ×2 (10:15→18:00)
[2019-06-23] MEDS ORDERED: SLF 3 ML SYR IV PRN (11:45)
[2019-06-23] MEDS ORDERED: SLF 3 ML SYR IV SCH (14:00)
[2019-06-23 15:01] LABS: HEMATOCRIT 33.8 % (36.0-47.0); MEAN CORPUSCULAR HEMOGLOBIN 29.5 pg (27.0-33.0); MEAN CORPUSCULAR HGB CONC 33.7 g/dl (32.0-36.5); MEAN CORPUSCULAR VOLUME 87.6 fl (80.0-96.0); PLATELET COUNT, AUTOMATED 174 10^3/uL (150-450); RED BLOOD COUNT 3.86 10^6/uL (4.00-5.40); WHITE BLOOD COUNT 3.6 10^3/uL (4.0-10.0)
[2019-06-23 15:04] LABS: HEMOGLOBIN 11.4 g/dl (12.0-15.5)
[2019-06-23] MEDS ORDERED: PANT40TA3 PO (15:54)
--- NOTE | 2019-06-23 16:34 | DS.PDOC ---
Discharge Summary General Date of Admission Jun 20, 2019 at 18:13 Date of Discharge 06/23/2019 Discharge Summary PROCEDURES PERFORMED DURING STAY: EGD and Colonoscopy (See below) completed on 06/22/[address] Lares ADMITTING DIAGNOSES / DISCHARGE DIAGNOSES: Acute blood loss anemia - likely 2/2 GI bleed - possibly 2/2 upper GI bleed s/p Hypokalemia Hypertension DVT prophylaxis COMPLICATIONS/CHIEF COMPLAINT: Dark colored stool HISTORY OF PRESENT ILLNESS: Patient is an 79 year old female with a PMHx of Chronic HTN, Dyslipidemia, Sjogren's, Polyclonal gammopathy, Osteoporosis who presented to the ER with complaints of black stools for 2-3 days associated with light- headedness. Patient was admitted to the hospital service for further evaluation and treatment. HOSPITAL COURSE: Acute blood loss anemia - likely 2/2 GI bleed - possibly 2/2 upper GI bleed - Upon arrival, patient had presented with dark colored stool; this has resolved over the last 48 hours - Lab work had revealed anemia - s/p 2 units PRBC - Hg relatively stable; current drop possibly 2/2 dilutional etiology as bowel movements did not have any evidence of blood - Patient was given an additional 2 units PRBC today and clinically feels much more improved, reports no SOB, palpitations, CP or weakness - EGD 06/21: Normal esophagus, Small hiatal hernia, non-bleeding gastric ulcer with no stigmata of bleeding, one submucosal papule found in stomach, normal duodenal bulb, first portion of the duodenum and second portion of duodenum - Colonoscopy 06/21: Moderate diverticulosis in the sigmoid colon, transverse colon at hepatic flexure, ascending colon and cecum, no diverticular bleeding, examination otherwise normal - c/w Protonix PO dialy - Patient has been given a script for outpatient blood work to be completed in 2 days - Dr. Lares on consultation; has been cleared for discharge home s/p Hypokalemia Hypertension - BP well controlled - c/w Amlodipine DVT prophylaxis - c/w TEDs / Sequentials DISCHARGE MEDICATIONS: Please see below. ALLERGIES: Please see below. PHYSICAL EXAMINATION ON DISCHARGE: Vitals (See below) General: Lying in bed, no acute distress, comfortable, AAOx3 HEENT: NC, AT CVS: RRR, +S1S2 Lungs: Fair air entry b/l, no appreciable wheezing / rhonchi / rales Abdomen: Soft, non-distended / non-tender Extremities: No evidence of edema, - Calf tenderness LABORATORY DATA: Please see below. ACTIVITY: [As tolerated]. DISCHARGE PLAN: Follow up with Dr. Herrera Ludwig and Dr. Lares within 7 days Remain compliant with treatment plan and medications Return to the ER if you experience any problems DISPOSITION: Home DISCHARGE CONDITION: [Stable]. TIME SPENT ON DISCHARGE: 35 minutes Vital Signs/I&Os Vital Signs Date Time Temp Pulse Resp B/P (MAP) Pulse Ox O2 Delivery O2 Flow Rate FiO2 06/23/19 14:33 98.0 72 18 133/62 (85) 98 Room Air I&O- Last 24 Hours up to 6 AM 06/23/19 06:00 Intake Total 1050 ml Output Total 700 ml Balance 350 ml Laboratory Data Labs 24H Laboratory Tests 2 06/23/19 05:04: Nucleated Red Blood Cells % (auto) 0.0, Anion Gap 3L, Glomerular Filtration Rate > 60.0, Calcium Level 7.1L 06/23/19 14:52: Nucleated Red Blood Cells % (auto) 0.0 CBC/BMP Laboratory Tests 06/22/19 19:04 06/22/19 23:44 06/23/19 05:04 06/23/19 14:52 Microbiology Microbiology 06/21/19 Stool Occult Blood (BOOKER) - Final, Complete Discharge Medications Scheduled Amlodipine Besylate (Amlodipine Besylate) 10 Mg Tablet, 10 MG PO DAILY, (Reported) Calcium Carbonate (Calcium) 500 Mg Tablet, 500 MG PO BID, (Reported) Ibandronate Sodium (Ibandronate Sodium) 150 Mg Tablet, 150 MG PO QMONTH, (Reported) Ripton-3 Fatty Acids/Fish Oil (Fish Oil 1,000 mg Capsule) 1 Each Capsule, 2,000 MG PO DAILY, (Reported) Pantoprazole Sodium (Pantoprazole Sodium) 40 Mg Tablet., 40 MG PO DAILY Allergies Coded Allergies: Sulfa (Sulfonamide Antibiotics) (Verified Allergy, Unknown, 06/20/19) SUSY DAWSON MD Jun 23, 2019 16:34
== END 2019-06-23 18:20 | disposition home or self-care (01) | DRG 378 ==
LOC: M ED 16:54 → M ED INP 18:13 → ENRESERV 19:21 → M PCU 20:52
PROVIDERS: ADMIT Internal Medicine; ATTEND Internal Medicine
PROC: 30233N1 Transfusion of Nonautologous Red Blood Cells into Peripheral Vein, Percutaneous Approach (ICD-10-PCS; 2019-06-20)
PROC: 0DJD8ZZ Inspection of Lower Intestinal Tract, Via Natural or Artificial Opening Endoscopic (ICD-10-PCS; principal; 2019-06-22 14:45)
DX: K92.1 Melena (principal); D62 Acute posthemorrhagic anemia; I11.9 Hypertensive heart disease without heart failure; M35.00 Sjogren syndrome, unspecified; D47.2 Monoclonal gammopathy; K57.30 Diverticulosis of large intestine without perforation or abscess without bleeding; E78.5 Hyperlipidemia, unspecified; E87.6 Hypokalemia; M81.0 Age-related osteoporosis without current pathological fracture; Z79.82 Long term (current) use of aspirin; Z79.899 Other long term (current) drug therapy; Z88.2 Allergy status to sulfonamides; Z98.41 Cataract extraction status, right eye; Z98.42 Cataract extraction status, left eye

== ENCOUNTER → 2019-06-25 | Outpatient (CLI) | payer MEDICARE ==
[~2019-06-25] MED LIST: AMLO10TA5 PO; ASPI-1 PO; FISH1000 PO; IBAN150T6 PO; OYST1TAB PO; PANT40TA3 PO
[2019-06-25 11:21] LABS: HEMATOCRIT 37.2 % (36.0-47.0); HEMOGLOBIN 12.2 g/dl (12.0-15.5); MEAN CORPUSCULAR HEMOGLOBIN 29.3 pg (27.0-33.0); MEAN CORPUSCULAR HGB CONC 32.8 g/dl (32.0-36.5); MEAN CORPUSCULAR VOLUME 89.2 fl (80.0-96.0); PLATELET COUNT, AUTOMATED 242 10^3/uL (150-450); RED BLOOD COUNT 4.17 10^6/uL (4.00-5.40); WHITE BLOOD COUNT 4.3 10^3/uL (4.0-10.0)
== END ==
LOC: M LAB 10:33
PROVIDERS: ATTEND Internal Medicine
DX: D62 Acute posthemorrhagic anemia (principal)

== ENCOUNTER → 2019-07-05 | Outpatient (REF) | payer MEDICARE ==
[2019-07-05 18:19] LABS: HEMATOCRIT 38.2 % (36.0-47.0); HEMOGLOBIN 12.3 g/dl (12.0-15.5); MEAN CORPUSCULAR HEMOGLOBIN 29.1 pg (27.0-33.0); MEAN CORPUSCULAR HGB CONC 32.2 g/dl (32.0-36.5); MEAN CORPUSCULAR VOLUME 90.5 fl (80.0-96.0); PLATELET COUNT, AUTOMATED 283 10^3/uL (150-450); RED BLOOD COUNT 4.22 10^6/uL (4.00-5.40); WHITE BLOOD COUNT 4.8 10^3/uL (4.0-10.0)
[2019-07-05 18:23] LABS: ALBUMIN 3.3 GM/DL (3.2-5.2); ALT/SGPT 30 U/L (12-78); BILIRUBIN,TOTAL 0.2 MG/DL (0.2-1.0); BLOOD UREA NITROGEN 29 MG/DL (7-18); CALCIUM LEVEL 8.4 MG/DL (8.8-10.2); CARBON DIOXIDE LEVEL 29 MEQ/L (21-32); CHLORIDE LEVEL 106 MEQ/L (98-107); CREATININE FOR GFR 0.88 MG/DL (0.55-1.30); GLOMERULAR FILTRATION RATE > 60.0 (>32); GLUCOSE, FASTING 109 MG/DL (70-100); MAGNESIUM LEVEL 2.3 MG/DL (1.8-2.4); SODIUM LEVEL 138 MEQ/L (136-145); TOTAL PROTEIN 8.1 GM/DL (6.4-8.2)
[2019-07-05 18:33] LABS: TOTAL 25(OH) VITAMIN D 49.6 NG/ML (30.0-100.0)
[2019-07-06 08:51] LABS: ALBUMIN 3.81 GM/DL (3.29-5.55); ALPHA-1-GLOBULIN % 4.2 % (2.9-4.9); ALPHA-1-GLOBULINS 0.34 GM/DL (0.17-0.41); ALPHA-2-GLOBULINS 0.81 GM/DL (0.42-0.99); BETA-1-GLOBULINS 0.49 GM/DL (0.28-0.60); BETA-2-GLOBULINS % 4.9 % (3.2-6.5); GAMMA GLOBULIN % 27.9 % (11.1-18.8)
[2019-07-06 08:52] LABS: GAMMA GLOBULINS 2.26 GM/DL (0.65-1.58)
[2019-07-08 00:07] LABS: BETA 2 MICROGLOBULIN 2.8 mg/L (0.6-2.4); FREE KAPPA LIGHT CHAINS SERUM 52.9 mg/L (3.3-19.4); FREE LAMBDA LIGHT CHAINS SERUM 32.1 mg/L (5.7-26.3); KAPPA/LAMBDA RATIO SERUM 1.65 (0.26-1.65)
== END ==
LOC: M SFHCPLAZ 13:44
PROVIDERS: ATTEND Internal Medicine
DX: D89.0 Polyclonal hypergammaglobulinemia (principal); I10 Essential (primary) hypertension; M81.0 Age-related osteoporosis without current pathological fracture
CPT/HCPCS: 80053; 82232; 82306; 83735; 83883; 84165; 85027; 99495; G0463

== ENCOUNTER → 2020-02-16 | Outpatient (CLI) | payer MEDICARE ==
[~2020-02-16] MED LIST changes: -AMLO10TA5 PO; +AMLO1TAB25 PO; +PANT40TA29 PO; -PANT40TA3 PO
[2020-02-16 11:33] LABS: HEMATOCRIT 40.4 % (36.0-47.0); HEMOGLOBIN 13.2 g/dl (12.0-15.5); MEAN CORPUSCULAR HEMOGLOBIN 29.6 pg (27.0-33.0); MEAN CORPUSCULAR HGB CONC 32.7 g/dl (32.0-36.5); MEAN CORPUSCULAR VOLUME 90.6 fl (80.0-96.0); PLATELET COUNT, AUTOMATED 204 10^3/uL (150-450); RED BLOOD COUNT 4.46 10^6/uL (4.00-5.40); WHITE BLOOD COUNT 3.4 10^3/uL (4.0-10.0)
[2020-02-16 12:15] LABS: ALBUMIN 3.8 GM/DL (3.2-5.2); ALT/SGPT 28 U/L (12-78); BILIRUBIN,TOTAL 0.5 MG/DL (0.2-1.0); BLOOD UREA NITROGEN 16 MG/DL (7-18); CALCIUM LEVEL 9.6 MG/DL (8.8-10.2); CARBON DIOXIDE LEVEL 29 MEQ/L (21-32); CHLORIDE LEVEL 105 MEQ/L (98-107); CHOLESTEROL LEVEL 238 MG/DL (<200); CHOLESTEROL RISK RATIO 3.606 (<5); CREATININE FOR GFR 0.78 MG/DL (0.55-1.30); GLOMERULAR FILTRATION RATE > 60.0 (>32); GLUCOSE, FASTING 87 MG/DL (70-100); HDL CHOLESTEROL 66 MG/DL (>40); LDL CHOLESTEROL 147 MG/DL (<100); MAGNESIUM LEVEL 2.3 MG/DL (1.8-2.4); NON-HDL-C 172 MG/DL; POTASSIUM SERUM 3.6 MEQ/L (3.5-5.1); SODIUM LEVEL 142 MEQ/L (136-145); TOTAL PROTEIN 9.3 GM/DL (6.4-8.2); TRIGLYCERIDES LEVEL 123 MG/DL (<150)
[2020-02-17 11:54] LABS: ALBUMIN % 48.2 % (55.8-66.1); ALPHA-1-GLOBULIN % 3.4 % (2.9-4.9)
[2020-02-17 11:55] LABS: ALBUMIN 4.48 GM/DL (3.29-5.55); ALPHA-1-GLOBULINS 0.32 GM/DL (0.17-0.41); ALPHA-2-GLOBULINS 0.84 GM/DL (0.42-0.99); BETA-1-GLOBULINS 0.52 GM/DL (0.28-0.60); BETA-1-GLOBULINS % 5.6 % (4.7-7.2); BETA-2-GLOBULINS 0.43 GM/DL (0.19-0.55); BETA-2-GLOBULINS % 4.6 % (3.2-6.5); GAMMA GLOBULIN % 29.2 % (11.1-18.8); GAMMA GLOBULINS 2.72 GM/DL (0.65-1.58)
== END ==
LOC: M PLALAB 08:32
PROVIDERS: ATTEND Internal Medicine
DX: I10 Essential (primary) hypertension (principal); D89.0 Polyclonal hypergammaglobulinemia; E78.00 Pure hypercholesterolemia, unspecified

== ENCOUNTER → 2020-04-26 | Outpatient (CLI) | payer MEDICARE ==
--- NOTE | 2020-04-26 12:14 | REPMRS ---
Patient History The patient states she has not had a clinical breast exam in over a year. Family history of prostate cancer at age 50 or over in paternal uncle, prostate cancer at age 50 or over in maternal uncle. No Hormone Replacement Therapy 3D TOMOSYNTHESIS WAS PERFORMED. [facility] for [facility]%. Volpara breast density b. Digital Woman Screen Mammo: April 26, 2020 - Exam #: [id number] Bilateral CC and MLO view(s) were taken. Technologist: Alberta Mayfield, Technologist Prior study comparison: December 31, 2017, bilateral digital woman screen mammo performed at [facility]. May 06, 2016, digital woman screen mammo performed at [facility]. FINDINGS: There are scattered fibroglandular densities. There has been no change in the appearance of the mammogram from the prior studies. There is a mild amount of residual fibroglandular tissue which is fairly symmetric. There is no interval development of dominant mass, architectural distortion, or clustered microcalcification suggestive of malignancy. Assessment: BI-RADS/ACR category 1 mammogram. Negative Mammogram. Recommendation Routine screening mammogram in 1 year (for women over age 40). This mammogram was interpreted with the aid of an FDA-approved computer-aided dectection system. Electronically Signed By: Paco Nicole MD 04/26/20 1129
== END ==
LOC: M WHC 11:25
PROVIDERS: ATTEND Internal Medicine
DX: Z12.31 Encounter for screening mammogram for malignant neoplasm of breast (principal)

== ENCOUNTER → 2020-08-17 | Outpatient (REF) | payer MEDICARE ==
[2020-08-17 13:25] LABS: BLOOD UREA NITROGEN 25 MG/DL (7-18); CALCIUM LEVEL 9.1 MG/DL (8.8-10.2); CARBON DIOXIDE LEVEL 31 MEQ/L (21-32); CHLORIDE LEVEL 104 MEQ/L (98-107); CREATININE FOR GFR 0.86 MG/DL (0.55-1.30); GLOMERULAR FILTRATION RATE > 60.0 (>32); GLUCOSE, FASTING 85 MG/DL (70-100); POTASSIUM SERUM 3.7 MEQ/L (3.5-5.1); SODIUM LEVEL 140 MEQ/L (136-145)
[2020-08-17 13:26] LABS: ALBUMIN 3.5 GM/DL (3.2-5.2); ALT/SGPT 26 U/L (12-78); BILIRUBIN,TOTAL 0.3 MG/DL (0.2-1.0); CHOLESTEROL LEVEL 228 MG/DL (<200); CHOLESTEROL RISK RATIO 3.677 (<5); HDL CHOLESTEROL 62 MG/DL (>40); LDL CHOLESTEROL 137 MG/DL (<100); MAGNESIUM LEVEL 2.2 MG/DL (1.8-2.4); NON-HDL-C 166 MG/DL; TOTAL PROTEIN 8.6 GM/DL (6.4-8.2); TRIGLYCERIDES LEVEL 143 MG/DL (<150)
== END ==
LOC: M PLALAB 09:34
PROVIDERS: ATTEND Internal Medicine
DX: D89.0 Polyclonal hypergammaglobulinemia (principal); I10 Essential (primary) hypertension; E78.00 Pure hypercholesterolemia, unspecified

== ENCOUNTER → 2021-03-06 | Outpatient (CLI) | payer MEDICARE ==
[2021-03-06 10:45] LABS: BASO % 0.4 % (0.0-1.0); EOS % 0.7 % (0.0-3.0); HEMOGLOBIN 13.2 g/dl (12.0-15.5); LYMPH # 0.9 10^3/uL (1.5-5.0); LYMPH % 33.8 % (24.0-44.0); MEAN CORPUSCULAR HEMOGLOBIN 29.9 pg (27.0-33.0); MEAN CORPUSCULAR VOLUME 90.7 fl (80.0-96.0); MONO # 0.2 10^3/uL (0.0-0.8); NEUTROPHILS # 1.6 10^3/uL (1.5-8.5); NEUTROPHILS % 56.7 % (36.0-66.0); PLATELET COUNT, AUTOMATED 185 10^3/uL (150-450); RED BLOOD COUNT 4.41 10^6/uL (4.00-5.40); WHITE BLOOD COUNT 2.8 10^3/uL (4.0-10.0)
[2021-03-06 11:13] LABS: ALBUMIN 3.6 GM/DL (3.2-5.2); ALT/SGPT 37 U/L (12-78); BILIRUBIN,TOTAL 0.4 MG/DL (0.2-1.0); BLOOD UREA NITROGEN 18 MG/DL (7-18); CALCIUM LEVEL 9.4 MG/DL (8.8-10.2); CARBON DIOXIDE LEVEL 30 MEQ/L (21-32); CHLORIDE LEVEL 104 MEQ/L (98-107); CHOLESTEROL LEVEL 235 MG/DL (<200); CHOLESTEROL RISK RATIO 3.916 (<5); CREATININE FOR GFR 0.82 MG/DL (0.55-1.30); GLOMERULAR FILTRATION RATE > 60.0 (>32); GLUCOSE, FASTING 93 MG/DL (70-100); HDL CHOLESTEROL 60 MG/DL (>40); LDL CHOLESTEROL 159 MG/DL (<100); MAGNESIUM LEVEL 2.3 MG/DL (1.8-2.4); NON-HDL-C 175 MG/DL; POTASSIUM SERUM 3.7 MEQ/L (3.5-5.1); SODIUM LEVEL 139 MEQ/L (136-145); TOTAL PROTEIN 8.9 GM/DL (6.4-8.2); TRIGLYCERIDES LEVEL 80 MG/DL (<150)
[2021-03-07 13:01] LABS: ALBUMIN 4.23 GM/DL (3.29-5.55); ALBUMIN % 47.5 % (55.8-66.1); ALPHA-1-GLOBULIN % 3.8 % (2.9-4.9); ALPHA-1-GLOBULINS 0.34 GM/DL (0.17-0.41); ALPHA-2-GLOBULINS 0.85 GM/DL (0.42-0.99); ALPHA-2-GLOBULINS % 9.5 % (7.1-11.8); BETA-1-GLOBULINS 0.47 GM/DL (0.28-0.60); BETA-1-GLOBULINS % 5.3 % (4.7-7.2); BETA-2-GLOBULINS 0.38 GM/DL (0.19-0.55); BETA-2-GLOBULINS % 4.3 % (3.2-6.5); GAMMA GLOBULIN % 29.6 % (11.1-18.8); GAMMA GLOBULINS 2.63 GM/DL (0.65-1.58)
[2021-03-08 03:10] LABS: BETA 2 MICROGLOBULIN 2.8 mg/L (0.6-2.4); FREE KAPPA LIGHT CHAINS SERUM 50.2 mg/L (3.3-19.4); FREE LAMBDA LIGHT CHAINS SERUM 27.5 mg/L (5.7-26.3); KAPPA/LAMBDA RATIO SERUM 1.83 (0.26-1.65)
== END ==
LOC: M PLALAB 08:16
PROVIDERS: ATTEND Internal Medicine
DX: I10 Essential (primary) hypertension (principal)

== ENCOUNTER → 2021-09-13 | Outpatient (CLI) | payer MEDICARE ==
[2021-09-13 10:46] LABS: BASO % 0.4 % (0.0-1.0); EOS % 1.5 % (0.0-3.0); HEMOGLOBIN 12.7 g/dl (12.0-15.5); LYMPH # 0.9 10^3/uL (1.5-5.0); LYMPH % 32.5 % (24.0-44.0); MEAN CORPUSCULAR HEMOGLOBIN 31.1 pg (27.0-33.0); MEAN CORPUSCULAR HGB CONC 33.4 g/dl (32.0-36.5); MEAN CORPUSCULAR VOLUME 93.1 fl (80.0-96.0); MONO # 0.3 10^3/uL (0.0-0.8); MONO % 12.1 % (2.0-8.0); NEUTROPHILS # 1.4 10^3/uL (1.5-8.5); NEUTROPHILS % 53.5 % (36.0-66.0); PLATELET COUNT, AUTOMATED 155 10^3/uL (150-450); RED BLOOD COUNT 4.08 10^6/uL (4.00-5.40); WHITE BLOOD COUNT 2.7 10^3/uL (4.0-10.0)
[2021-09-13 10:53] LABS: ALBUMIN 3.4 GM/DL (3.2-5.2); ALT/SGPT 30 U/L (12-78); BILIRUBIN,TOTAL 0.5 MG/DL (0.2-1.0); BLOOD UREA NITROGEN 23 MG/DL (7-18); CALCIUM LEVEL 8.6 MG/DL (8.8-10.2); CARBON DIOXIDE LEVEL 31 MEQ/L (21-32); CHLORIDE LEVEL 108 MEQ/L (98-107); CHOLESTEROL LEVEL 202 MG/DL (<200); CHOLESTEROL RISK RATIO 3.811 (<5); CREATININE FOR GFR 0.83 MG/DL (0.55-1.30); GLOMERULAR FILTRATION RATE > 60.0 (>32); GLUCOSE, FASTING 83 MG/DL (70-100); HDL CHOLESTEROL 53 MG/DL (>40); LDL CHOLESTEROL 119 MG/DL (<100); NON-HDL-C 149 MG/DL; SODIUM LEVEL 140 MEQ/L (136-145); TRIGLYCERIDES LEVEL 149 MG/DL (<150)
[2021-09-14 14:06] LABS: ALBUMIN 4.28 GM/DL (3.29-5.55); ALBUMIN % 47.6 % (55.8-66.1); ALPHA-1-GLOBULIN % 3.9 % (2.9-4.9); ALPHA-1-GLOBULINS 0.35 GM/DL (0.17-0.41); ALPHA-2-GLOBULINS 0.84 GM/DL (0.42-0.99); ALPHA-2-GLOBULINS % 9.3 % (7.1-11.8); BETA-1-GLOBULINS 0.46 GM/DL (0.28-0.60); BETA-1-GLOBULINS % 5.1 % (4.7-7.2); BETA-2-GLOBULINS % 4.3 % (3.2-6.5); GAMMA GLOBULIN % 29.8 % (11.1-18.8)
[2021-09-14 14:07] LABS: BETA-2-GLOBULINS 0.39 GM/DL (0.19-0.55); GAMMA GLOBULINS 2.68 GM/DL (0.65-1.58)
[2021-09-15 06:09] LABS: FREE KAPPA LIGHT CHAINS SERUM 54.7 mg/L (3.3-19.4); KAPPA/LAMBDA RATIO SERUM 1.89 (0.26-1.65)
== END ==
LOC: M PLALAB 08:08
PROVIDERS: ATTEND Internal Medicine
DX: I10 Essential (primary) hypertension (principal)

== ENCOUNTER → 2022-03-14 | Outpatient (CLI) | payer MEDICARE ==
[2022-03-14 13:55] LABS: HEMATOCRIT 39.4 % (36.0-47.0); HEMOGLOBIN 12.8 g/dl (12.0-15.5); MEAN CORPUSCULAR HEMOGLOBIN 30.3 pg (27.0-33.0); MEAN CORPUSCULAR HGB CONC 32.5 g/dl (32.0-36.5); MEAN CORPUSCULAR VOLUME 93.4 fl (80.0-96.0); PLATELET COUNT, AUTOMATED 194 10^3/uL (150-450); RED BLOOD COUNT 4.22 10^6/uL (4.00-5.40)
[2022-03-14 14:55] LABS: VITAMIN B12 LEVEL 888 PG/ML (211-911)
[2022-03-14 14:56] LABS: ALBUMIN 3.6 G/DL (3.2-5.2); ALKALINE PHOSPHATASE 126 U/L (46-116); ALT/SGPT 26 U/L (7.0-40); AST/SGOT 22 U/L (<34); BILIRUBIN,TOTAL 0.4 MG/DL (0.3-1.2); BLOOD UREA NITROGEN 20 MG/DL (9-23); CALCIUM LEVEL 9.1 MG/DL (8.3-10.6); CARBON DIOXIDE LEVEL 30 MMOL/L (20-31); CHLORIDE LEVEL 102 MMOL/L (98-107); CHOLESTEROL LEVEL 192 MG/DL (<200); CHOLESTEROL RISK RATIO 3.52 (<5); CREATININE FOR GFR 0.71 MG/DL (0.55-1.30); GLOMERULAR FILTRATION RATE > 60.0 (>32); GLUCOSE, FASTING 95 MG/DL (74-106); HDL CHOLESTEROL 54.4 MG/DL (>40); LDL CHOLESTEROL 115.2 MG/DL (<100); NON-HDL-C 138 MG/DL; POTASSIUM SERUM 3.9 MMOL/L (3.5-5.1); SODIUM LEVEL 141 MMOL/L (136-145); TOTAL PROTEIN 8.7 G/DL (5.7-8.2); TRIGLYCERIDES LEVEL 112 MG/DL (<150)
[2022-03-15 17:08] LABS: FREE KAPPA LIGHT CHAINS SERUM 54.4 mg/L (3.3-19.4); FREE LAMBDA LIGHT CHAINS SERUM 29.5 mg/L (5.7-26.3); KAPPA/LAMBDA RATIO SERUM 1.84 (0.26-1.65)
== END ==
LOC: M PLALAB 09:22
PROVIDERS: ATTEND Internal Medicine Hematology
DX: I10 Essential (primary) hypertension (principal)

== ENCOUNTER → 2022-03-26 | Outpatient (CLI) | payer MEDICARE | LOC: M WHC 10:41 | PROVIDERS: ATTEND Internal Medicine Hematology | DX: Z12.31 Encounter for screening mammogram for malignant neoplasm of breast (principal); M81.0 Age-related osteoporosis without current pathological fracture ==

== ENCOUNTER → 2022-03-26 | Outpatient (CLI) | payer MEDICARE | LOC: M PLAIMG 12:16 | PROVIDERS: ATTEND Internal Medicine Hematology | DX: M81.0 Age-related osteoporosis without current pathological fracture (principal) ==

== ENCOUNTER → 2023-03-25 | Outpatient (CLI) | payer MEDICARE ==
[2023-03-25 10:29] LABS: HEMATOCRIT 39.8 % (36.0-47.0); HEMOGLOBIN 13.2 g/dl (12.0-15.5); MEAN CORPUSCULAR HEMOGLOBIN 30.9 pg (27.0-33.0); MEAN CORPUSCULAR HGB CONC 33.2 g/dl (32.0-36.5); MEAN CORPUSCULAR VOLUME 93.2 fl (80.0-96.0); PLATELET COUNT, AUTOMATED 186 10^3/uL (150-450); RED BLOOD COUNT 4.27 10^6/uL (4.00-5.40); WHITE BLOOD COUNT 4.3 10^3/uL (4.0-10.0)
[2023-03-25 10:38] LABS: ALBUMIN 3.5 G/DL (3.2-5.2); ALKALINE PHOSPHATASE 103 U/L (46-116); ALT/SGPT 18 U/L (7.0-40); AST/SGOT 18 U/L (<34); BILIRUBIN,TOTAL 0.6 MG/DL (0.3-1.2); BLOOD UREA NITROGEN 16 MG/DL (9-23); CALCIUM LEVEL 9.2 MG/DL (8.3-10.6); CARBON DIOXIDE LEVEL 30 MMOL/L (20-31); CHLORIDE LEVEL 106 MMOL/L (98-107); CHOLESTEROL LEVEL 212 MG/DL (<200); CHOLESTEROL RISK RATIO 3.88 (<5); CREATININE FOR GFR 0.67 MG/DL (0.55-1.30); GLOMERULAR FILTRATION RATE > 60.0 (>32); GLUCOSE, FASTING 97 MG/DL (74-106); HDL CHOLESTEROL 54.5 MG/DL (>40); LDL CHOLESTEROL 137.1 MG/DL (<100); NON-HDL-C 157.5 MG/DL; POTASSIUM SERUM 3.8 MMOL/L (3.5-5.1); SODIUM LEVEL 142 MMOL/L (136-145); TOTAL PROTEIN 8.3 G/DL (5.7-8.2); TRIGLYCERIDES LEVEL 102 MG/DL (<150)
[2023-03-25 10:39] LABS: THYROID STIMULATING HORMONE 0.951 uIU/ML (0.55-4.78); VITAMIN B12 LEVEL 1015 PG/ML (211-911)
[2023-03-25 10:40] LABS: FREE T4 1.11 NG/DL (0.89-1.76)
[2023-03-27 16:08] LABS: FREE KAPPA LIGHT CHAINS SERUM 57.1 mg/L (3.3-19.4); FREE LAMBDA LIGHT CHAINS SERUM 28.4 mg/L (5.7-26.3); KAPPA/LAMBDA RATIO SERUM 2.01 (0.26-1.65)
== END ==
LOC: M PLALAB 08:07
PROVIDERS: ATTEND Internal Medicine Hematology
DX: D89.0 Polyclonal hypergammaglobulinemia (principal); E78.00 Pure hypercholesterolemia, unspecified; Z79.899 Other long term (current) drug therapy

== ENCOUNTER → 2023-09-17 | Outpatient (CLI) | payer MEDICARE ==
[2023-09-17 10:30] LABS: HEMATOCRIT 38.6 % (36.0-47.0); HEMOGLOBIN 12.6 g/dl (12.0-15.5); MEAN CORPUSCULAR HEMOGLOBIN 30.1 pg (27.0-33.0); MEAN CORPUSCULAR HGB CONC 32.6 g/dl (32.0-36.5); MEAN CORPUSCULAR VOLUME 92.3 fl (80.0-96.0); PLATELET COUNT, AUTOMATED 176 10^3/uL (150-450); RED BLOOD COUNT 4.18 10^6/uL (4.00-5.40); WHITE BLOOD COUNT 3.8 10^3/uL (4.0-10.0)
[2023-09-17 10:41] LABS: ALBUMIN 3.3 G/DL (3.2-5.2); ALKALINE PHOSPHATASE 120 U/L (46-116); ALT/SGPT 29 U/L (7.0-40); AST/SGOT 23 U/L (<34); BILIRUBIN,TOTAL 0.5 MG/DL (0.3-1.2); BLOOD UREA NITROGEN 27 MG/DL (9-23); CARBON DIOXIDE LEVEL 30 MMOL/L (20-31); CHLORIDE LEVEL 105 MMOL/L (98-107); CHOLESTEROL LEVEL 204 MG/DL (<200); CHOLESTEROL RISK RATIO 3.77 (<5); CREATININE FOR GFR 0.74 MG/DL (0.55-1.30); GLOMERULAR FILTRATION RATE > 60.0 (>32); GLUCOSE, FASTING 96 MG/DL (74-106); LDL CHOLESTEROL 123.8 MG/DL (<100); POTASSIUM SERUM 3.7 MMOL/L (3.5-5.1); SODIUM LEVEL 140 MMOL/L (136-145); TOTAL PROTEIN 8.2 G/DL (5.7-8.2); TRIGLYCERIDES LEVEL 131 MG/DL (<150)
[2023-09-17 10:44] LABS: THYROID STIMULATING HORMONE 1.428 uIU/ML (0.55-4.78); TOTAL 25(OH) VITAMIN D 59.7 NG/ML (20.0-100.0); VITAMIN B12 LEVEL 887 PG/ML (211-911)
[2023-09-17 10:51] LABS: HEMOGLOBIN A1c 5.3 % (4.0-6.0)
== END ==
LOC: M PLALAB 08:07
PROVIDERS: ATTEND Internal Medicine Hematology
DX: D89.0 Polyclonal hypergammaglobulinemia (principal); E07.9 Disorder of thyroid, unspecified; E78.00 Pure hypercholesterolemia, unspecified

== ENCOUNTER → 2024-03-16 | Outpatient (CLI) | payer MEDICARE ==
[~2024-03-16] MED LIST changes: +IBAN150T10 PO; -IBAN150T6 PO
== END ==
LOC: M WHC 10:49
PROVIDERS: ATTEND Student in an Organized Health Care Education/Training Program
DX: M81.0 Age-related osteoporosis without current pathological fracture (principal)